=== PATIENT | male | born 1960 | race American Indian/Alaskan Native ===

== ENCOUNTER 2019-09-06 11:10 | Day surgery (SDC) | payer OTHER ==
[2019-09-06] MEDS ORDERED: SODIUM CHLORIDE 0.9% 1000 ML 1,000 ML ONE (11:46)
--- NOTE | 2019-09-06 12:03 | Anesthesia Day of Surgery ---
Anesthesia Day of Surgery - Day of Surgery Patient Examined: Yes Patient H&P Reviewed: Yes Patient is NPO: Yes
--- NOTE | 2019-09-06 12:03 | Anesthesia Consultation ---
Anesthesia Consult and Med Hx Date of service: 09/06/19 - Airway Anesthetic Teeth Evaluation: Poor ROM Head & Neck: Adequate Mental/Hyoid Distance: Adequate Mallampati Class: Class II Intubation Access Assessment: Probably Good - Pulmonary Exam CTA: Yes - Cardiac Exam Cardiac Exam: RRR - Pre-Operative Health Status ASA Pre-Surgery Classification: ASA2 Proposed Anesthetic Plan: MAC - Pulmonary Hx Smoking: Yes (1/4PPD) Hx Respiratory Symptoms: No COPD: No - Cardiovascular System Hx Hypertension: No Hx Heart Attack/AMI: No - Central Nervous System CVA: No - Gastrointestinal Hx Gastroesophageal Reflux Disease: No - Endocrine Hx Renal Disease: No Hx Liver Disease: No Hx Insulin Dependent Diabetes: No Hx Non-Insulin Dependent Diabetes: No Hx Thyroid Disease: No - Other Systems Hx Obesity: No - Additional Comments Anesthesia Medical History Comments: No hx anesthetic complications.
[2019-09-06] MEDS ORDERED: PROPOFOL 200 MG/20 ML VIAL IV ONE (12:29)
[2019-09-06] MEDS ORDERED: SODIUM CHLORIDE 0.9% 1000 ML 1,000 ML IV SCH (13:00)
--- NOTE | 2019-09-06 13:33 | Procedure Note ---
Date of procedure: 09/06/19 Pre-op diagnosis: Colon Polyp Screening Post-op diagnosis: other (Solitary,Ascending Colon Polyp/Few,Proximal Colon Polyp/ Minor,Internal Hemorrhoid) Procedure: Colonoscopy with Biopsy Anesthesia: MAC Surgeon: JAILENE PALMA Estimated blood loss: minimal Pathology: list Specimen disposition: to lab Condition: stable Disposition: same day (Encourage fiber intake; avoid aspirin and NSAID for 4 days,otherwise resume home medication. Follow up in 1 to 2 weeks ([phone]).)
--- NOTE | 2019-09-06 13:53 | Operative Report ---
PROCEDURE: Colonoscopy INDICATIONS: A 58-year-old -[place] gentleman who has never had a colonoscopy before. Colonoscopy was done as part of colon polyp screening. DESCRIPTION OF PROCEDURE: The procedure was done after getting informed consent with MAC anesthesia. Initial rectal exam was unremarkable. Instrument was passed through the rectum onto the cecum, which was identified by the ileocecal valve and the appendiceal orifice. Visualization was slightly poor in the proximal colon. This area was washed with copious amounts of water. There were a few scattered diverticula noted in the proximal colon. The cecum was also viewed in the retroverted view. No additional pathology was noted. On withdrawal, there was an 8 to 9 mm polyp noted in the ascending colon that was removed by cold biopsy. The remaining part of the ascending colon, transverse colon showed normal mucosa. There were a few minor diverticula noted in the left colon and the rectum showed some minor internal hemorrhoid on the retroverted view. There was minimal bleeding associated with the procedure. No complications associated with the procedure. ASSESSMENT: Colon polyp screening, solitary ascending colon polyp, few proximal colon diverticula, minor internal hemorrhoid. The prep was fair to slightly poor especially in the proximal colon. The patient will be asked to avoid aspirin and aspirin-related products for the next few days and encourage fiber supplements and follow up in the office in 1-2 weeks' time. Procedure was done in the GI lab with the assistance of the GI lab team, which included CALEB Valencia and erasto Shay and with the assistance of anesthesia. JOB# [id number] ZULLY/CHARLES RAMOS
[2019-09-06 14:04] VITALS: BP 121/82
== END 2019-09-06 14:04 | disposition home or self-care (01) ==
LOC: GIO 11:10
DX: Z12.11 Encounter for screening for malignant neoplasm of colon (principal); D12.1 Benign neoplasm of appendix; K57.30 Diverticulosis of large intestine without perforation or abscess without bleeding; K64.8 Other hemorrhoids; F17.210 Nicotine dependence, cigarettes, uncomplicated; Z79.899 Other long term (current) drug therapy
CPT/HCPCS: 45380; 88305; J2704; J7030